=== PATIENT | female | born 1955 | race Caucasian/White ===

== ENCOUNTER 2017-05-16 11:58 | Emergency (ER) | payer OTHER ==
[~2017-05-16] VITALS: Ht 160 cm; Wt 123.8 kg
== END 2017-05-16 15:46 | disposition home or self-care (01) ==
LOC: ER 11:58
DX: S60.211A Contusion of right wrist, initial encounter (principal); W18.39XA Other fall on same level, initial encounter; Y93.01 Activity, walking, marching and hiking; Y92.098 Other place in other non-institutional residence as the place of occurrence of the external cause; Y99.8 Other external cause status

== ENCOUNTER → 2018-03-10 | Outpatient (CLI) | payer OTHER | END | disposition home or self-care (01) | LOC: LAB 17:01 | DX: E78.2 Mixed hyperlipidemia (principal); N39.0 Urinary tract infection, site not specified; I10 Essential (primary) hypertension; R07.89 Other chest pain; M25.561 Pain in right knee; M25.562 Pain in left knee; D68.8 Other specified coagulation defects ==

== ENCOUNTER 2018-03-27 12:30 | Inpatient (IN) | payer OTHER ==
[2018-03-27] MEDS ORDERED: MULTIVITAMINS1 EAC9 PO (17:16)
[2018-03-27] MEDS ORDERED: PROZAC PO (17:16)
[2018-03-27] MEDS ORDERED: [UNRECOGNIZED DRUG - OTHER] PO (17:17)
[2018-03-27] MEDS ORDERED: [UNRECOGNIZED DRUG - CODE] PO (17:18)
[2018-03-27] MEDS ORDERED: ALLEGRA ALLERGY60 MG PO (17:18)
== END 2018-04-03 15:17 | disposition home or self-care (01) | DRG 470 ==
LOC: O/R 12:30 → SURH 04-01 07:20 → O/R 04-01 07:20 → SURH 04-01 16:34 → O/R 04-01 17:41 → SURH 04-01 18:49
PROVIDERS: ADMIT Orthopaedic Surgery
PROC: 0SRD0J9 Replacement of Left Knee Joint with Synthetic Substitute, Cemented, Open Approach (ICD-10-PCS; principal; 2018-04-01 11:00)
DX: M17.12 Unilateral primary osteoarthritis, left knee (principal); D62 Acute posthemorrhagic anemia; S69.81XA Other specified injuries of right wrist, hand and finger(s), initial encounter; F32.89 Other specified depressive episodes

== ENCOUNTER 2021-03-24 05:58 | Day surgery (SDC) | payer OTHER ==
[~2021-03-24 05:58] MED LIST: ALLEGRA ALLERGY60 MG PO; LEVO-T75 MCG PO; MULTIVITAMINS1 EAC9 PO; PROZAC PO; [UNRECOGNIZED DRUG - CODE] PO; [UNRECOGNIZED DRUG - OTHER] PO
[2021-03-24] MEDS ORDERED: CEPHALEXIN500 M1 PO (10:22)
[2021-03-24] MEDS ORDERED: CILOXAN5 ML OTIC (10:22)
[2021-03-24] MEDS ORDERED: ZOFRAN4 MG PO (10:23)
== END 2021-03-24 14:40 | disposition home or self-care (01) ==
LOC: CIR.AMB 05:58
PROVIDERS: ATTEND Otolaryngology Otology & Neurotology
DX: G96.01 Cranial cerebrospinal fluid leak, spontaneous (principal); H65.21 Chronic serous otitis media, right ear; H72.01 Central perforation of tympanic membrane, right ear

== ENCOUNTER → 2021-12-01 | Outpatient (CLI) | payer OTHER ==
[~2021-12-01] MED LIST changes: +CEPHALEXIN500 M1 PO; +CILOXAN5 ML OTIC; +ZOFRAN4 MG PO
== END | disposition home or self-care (01) ==
LOC: RAD 15:32
PROVIDERS: ATTEND Orthopaedic Surgery
DX: M25.561 Pain in right knee (principal)

== ENCOUNTER 2021-12-20 12:45 | Inpatient (IN) | payer OTHER ==
[2021-12-27] MEDS ORDERED: FLUOXETINE HCL20 MG (08:33)
[2021-12-27] MEDS ORDERED: MEGA BIOTIN10000 MCG (09:05)
[2021-12-28] MEDS ORDERED: XARELTO10 MG PO (14:26)
[2021-12-28] MEDS ORDERED: GABAPENTIN100 MG PO (14:26)
[2021-12-28] MEDS ORDERED: OXYC1TAB9 PO (14:26)
[2021-12-28] MEDS ORDERED: NORFLEX100MG PO (14:26)
== END 2021-12-28 16:32 | DRG 470 ==
LOC: O/R 12-26 06:24 → SURG 12-26 07:00
PROVIDERS: ADMIT Orthopaedic Surgery; ATTEND Orthopaedic Surgery
PROC: 0SRC0J9 Replacement of Right Knee Joint with Synthetic Substitute, Cemented, Open Approach (ICD-10-PCS; principal; 2021-12-26 07:00)
DX: M17.11 Unilateral primary osteoarthritis, right knee (principal); D62 Acute posthemorrhagic anemia

== ENCOUNTER 2022-03-30 16:05 | Outpatient (CLI) | payer OTHER ==
[~2022-03-30 16:05] MED LIST changes: +FLUOXETINE HCL20 MG; +GABAPENTIN100 MG PO; +MEGA BIOTIN10000 MCG; +NORFLEX100MG PO; +OXYC1TAB9 PO; +XARELTO10 MG PO
== END 2022-03-30 16:11 | disposition home or self-care (01) ==
LOC: RAD 16:05
DX: M06.861 Other specified rheumatoid arthritis, right knee (principal); M06.862 Other specified rheumatoid arthritis, left knee; M19.09 Primary osteoarthritis, other specified site

== ENCOUNTER 2024-08-28 10:30 | Inpatient (IN) | payer OTHER ==
[~2024-08-28] VITALS: Ht 91.4 cm; Wt 120.2 kg
[2024-08-28 13:20] LABS: BASO % 0.5 % (0.1-1.2); EOS # 0.18 (0.04-0.54); EOS % 2.2 % (0.7-7.0); LYMPH # 1.62 (1.18-3.74); LYMPH % 19.5 % (19.3-53.1); MEAN PLATELET VOLUME 9.50 fl (9.4-12.4); MONO # 0.57 (0.24-0.82); MONO % 6.9 % (4.7-12.5); NEUT # 5.86 (1.56-6.13); NEUT % 70.7 % (34.0-71.1); RED CELL DISTRIBUTION WIDTH 13.8 % (11.6-14.4); URINE APPEARANCE Cloudy; URINE BILIRRUBIN Negative (NEGATIVE); URINE BLOOD NHT; URINE COLOR Dark Yellow; URINE GLUCOSE Negative (NEGATIVE); URINE KETONE Trace (NEGATIVE); URINE LEUKOCYTE Moderate; URINE NITRATE Negative; URINE PROTEIN 30 (NEGATIVE); URINE UROBILINOGEN 1.0 E.U./dl
[2024-08-28 13:23] LABS: URINE BACTERIA 249.5 uL (0.0-1933); URINE CAST 8.65 uL (0.0-1.40); URINE EPITHELIAL CELLS 44.1 uL (0.0-38.8); URINE RBC 27.1 uL (0.0-20.8); URINE WBC 204.1 uL (0.0-23.2)
[2024-08-28 13:34] LABS: COVID-19 AG NEGATIVE (NEGATIVE)
[2024-08-28 13:39] LABS: URINE MUCUS HEAVY
[2024-08-28 13:48] LABS: INR 0.96
[2024-08-28] MEDS ORDERED: SEMAGLUTID SQ (13:53)
[2024-08-28 13:54] VITALS: BP 130/74
[2024-08-28 14:13] LABS: RH POSITIVE
[2024-08-28 14:21] LABS: ALT/SGPT 32.0 U/L (12-78); AST/SGOT 20.0 U/L (15-37); BILIRUBIN TOTAL 0.39 mg/dL (0.3-1.2); BUN CREA RATIO 20.0 (7.0-25.0); CREATININE SERUM 0.81 mg/dL (0.55-1.02); GFR 69.9; GLOBULINA 3.9 G/DL (2.4-3.5); GLUCOSE FASTING 93.0 mg/dL (65-100); OSMOLALITY SERUM 286.0 MOSM/KG (275-295)
[2024-09-03] MEDS ORDERED: METRONIDAZOLE/SODIUM CHLORIDE 500 MG/100 ML PIGGYBACK IV ONE (09:15)
[2024-09-03] MEDS ORDERED: POVIDONE-IODINE 118 ML BOTT TOP ONE (09:15)
[2024-09-03] MEDS ORDERED: CEFAZOLIN SODIUM 1,000 MG VIAL IV ONE (09:15)
[2024-09-03] MEDS ORDERED: MORPHINE SULFATE 4 MG/ML CARTRIDGE IV PRN (09:30)
[2024-09-03] MEDS ORDERED: KETOROLAC TROMETHAMINE 30 MG VIAL IV ONE ×2 (09:30→11:05)
[2024-09-03] MEDS ORDERED: RINGERS SOLUTION,LACTATED 1,000 ML IV SCH (09:30)
[2024-09-03] MEDS ORDERED: THROMBIN,HU/FIBRINOGEN/CALCIUM 10 ML SYRINGE TOP ONE (09:45)
[2024-09-03] MEDS ORDERED: SURGIFLO APPLICATOR 1 EACH APPL TOP ONE (09:45)
[2024-09-03] MEDS ORDERED: VISTASEAL DUAL APPICATOR 1 EACH APPL TOP ONE (09:45)
[2024-09-03] MEDS ORDERED: HEMOSTATIC MATRIX 1 KIT KIT TOP ONE (09:45)
[2024-09-03] MEDS ORDERED: SUGAMMADEX SODIUM 200 MG/2 ML VIAL IV ONE (10:15)
[2024-09-03] MEDS ORDERED: ACETAMINOPHEN 500 MG GEL..CAP PO SCH (12:00)
[2024-09-03] MEDS ORDERED: ONDANSETRON HCL 2 MG/ML VIAL ONE (12:24)
[2024-09-03] MEDS ORDERED: SIMETHICONE 125 MG CAPSULE PO SCH (13:00)
[2024-09-03 13:05] LABS: BASO % 0.2 % (0.1-1.2); EOS # 0.06 (0.04-0.54); EOS % 0.5 % (0.7-7.0); LYMPH # 0.95 (1.18-3.74); LYMPH % 7.7 % (19.3-53.1); MEAN PLATELET VOLUME 9.50 fl (9.4-12.4); MONO # 0.48 (0.24-0.82); MONO % 3.9 % (4.7-12.5); NEUT # 10.73 (1.56-6.13); NEUT % 87.3 % (34.0-71.1); RED CELL DISTRIBUTION WIDTH 13.8 % (11.6-14.4)
[2024-09-03 13:11] LABS: BUN CREA RATIO 21.0 (7.0-25.0); CREATININE SERUM 0.67 mg/dL (0.55-1.02); GFR 87.01; GLUCOSE FASTING 107.0 mg/dL (65-100); OSMOLALITY SERUM 290.0 MOSM/KG (275-295)
[2024-09-03 13:26] VITALS: BP 130/74; O2SAT 98
[2024-09-03 16:35] VITALS: BP 122/75; O2SAT 98
[2024-09-03] MEDS ORDERED: CEFAZOLIN SODIUM 1,000 MG VIAL IV SCH (17:00)
[2024-09-03] MEDS ORDERED: METOCLOPRAMIDE HCL 5 MG/ML VIAL IV SCH (17:00)
[2024-09-03 20:00] VITALS: BP 95/65
[2024-09-03] MEDS ORDERED: DOCUSATE SODIUM 100MG CAP PO SCH (21:00)
[2024-09-03] MEDS ORDERED: FAMOTIDINE/PF 20 MG/2 ML VIAL IV PUSH SCH (21:00)
[2024-09-03] MEDS ORDERED: CELECOXIB 200 MG CAPSULE PO SCH (21:00)
[2024-09-03] MEDS ORDERED: GABAPENTIN 300 MG CAPSULE PO SCH (21:00)
[2024-09-04 02:09] VITALS: BP 113/65; O2SAT 92
[2024-09-04 03:53] LABS: BASO % 0.3 % (0.1-1.2); EOS # 0.17 (0.04-0.54); EOS % 1.9 % (0.7-7.0); LYMPH # 1.62 (1.18-3.74); LYMPH % 17.8 % (19.3-53.1); MEAN PLATELET VOLUME 9.60 fl (9.4-12.4); MONO # 0.73 (0.24-0.82); MONO % 8.0 % (4.7-12.5); NEUT # 6.50 (1.56-6.13); NEUT % 71.7 % (34.0-71.1); RED CELL DISTRIBUTION WIDTH 13.9 % (11.6-14.4)
[2024-09-04 04:14] LABS: BUN CREA RATIO 17.0 (7.0-25.0); GFR 111.61; GLUCOSE FASTING 90.0 mg/dL (65-100); OSMOLALITY SERUM 285.0 MOSM/KG (275-295)
[2024-09-04 04:16] LABS: CREATININE SERUM 0.54 mg/dL (0.55-1.02)
[2024-09-04] MEDS ORDERED: LEVOTHYROXINE SODIUM 75 MCG TABLET PO SCH (06:00)
[2024-09-04 08:47] VITALS: BP 124/69
[2024-09-04 08:50] VITALS: O2SAT 98
[2024-09-04] MEDS ORDERED: ENOXAPARIN SODIUM 40 MG/0.4 ML SYRINGE SUBCUTANEO SCH (09:00)
[2024-09-04] MEDS ORDERED: FLUOXETINE HCL 20 MG CAPSULE PO SCH (09:00)
== END 2024-09-04 11:42 | disposition home or self-care (01) | DRG 742 ==
LOC: O/R 09-03 09:35 → OB/GYN 09-03 09:35 → SURG 09-03 10:30 → OB/GYN 09-03 11:56 → SURG 09-03 13:30 → OB/GYN 09-04 11:42
PROVIDERS: Obstetrics & Gynecology; ADMIT Obstetrics & Gynecology Gynecologic Oncology; ATTEND Obstetrics & Gynecology Gynecologic Oncology
PROC: 0UT74ZZ Resection of Bilateral Fallopian Tubes, Percutaneous Endoscopic Approach (ICD-10-PCS; 2024-09-03)
PROC: 0UT24ZZ Resection of Bilateral Ovaries, Percutaneous Endoscopic Approach (ICD-10-PCS; 2024-09-03)
PROC: 07BC4ZZ Excision of Pelvis Lymphatic, Percutaneous Endoscopic Approach (ICD-10-PCS; 2024-09-03)
PROC: 8E0W4CZ Robotic Assisted Procedure of Trunk Region, Percutaneous Endoscopic Approach (ICD-10-PCS; 2024-09-03)
PROC: 0UT94ZZ Resection of Uterus, Percutaneous Endoscopic Approach (ICD-10-PCS; principal; 2024-09-03 13:30)
DX: D25.1 Intramural leiomyoma of uterus (principal); D62 Acute posthemorrhagic anemia; N85.02 Endometrial intraepithelial neoplasia [EIN]; N72 Inflammatory disease of cervix uteri
CPT/HCPCS: 58548; S2900